=== PATIENT | male | born 1930 | race Caucasian/White ===

== ENCOUNTER 2018-12-01 05:45 | Emergency (ER) | payer MEDICARE ==
[~2018-12-01] VITALS: Ht 162.6 cm; Wt 56.8 kg
[2018-12-01] MEDS ORDERED: METO1TAB32 PO (06:11)
[2018-12-01] MEDS ORDERED: TORS100T PO (06:11)
[2018-12-01 06:41] LABS: BASO % 0.2 % (0.0-1.0); EOS % 0.7 % (0.0-3.0); HEMATOCRIT 35.1 % (42.0-52.0); HEMOGLOBIN 10.2 g/dl (13.5-17.5); LYMPH # 1.2 10^3/uL (1.5-4.5); LYMPH % 19.9 % (24.0-44.0); MEAN CORPUSCULAR HEMOGLOBIN 28.9 pg (27.0-33.0); MEAN CORPUSCULAR HGB CONC 29.1 g/dl (32.0-36.5); MEAN CORPUSCULAR VOLUME 99.4 fl (80.0-96.0); MONO # 0.5 10^3/uL (0.0-0.8); MONO % 8.1 % (0.0-5.0); NEUTROPHILS # 4.1 10^3/uL (1.8-7.7); NEUTROPHILS % 70.6 % (36.0-66.0); PLATELET COUNT, AUTOMATED 173 10^3/uL (150-450); RED BLOOD COUNT 3.53 10^6/uL (4.30-6.10); WHITE BLOOD COUNT 5.8 10^3/uL (4.0-10.0)
[2018-12-01] MEDS ORDERED: ISOVUE-370 76% 100ML VIAL (Q9967) As Ordered ONE (06:52)
--- NOTE | 2018-12-01 07:37 | REPVR ---
EXAM: CT Angiography Chest With Contrast EXAM DATE/TIME: 12/01/2018 6:45 AM CLINICAL HISTORY: 88 years old, male; Chest pain; Type not specified; Additional info: Chest and back pain, HX of thoracic and abdominal aa TECHNIQUE: Imaging protocol: Computed tomographic angiography images of the chest with intravenous contrast using CT angiography protocol. 3D rendering: MIP reconstructed images were created and reviewed. Radiation optimization: All CT scans at this facility use at least one of these dose optimization techniques: automated exposure control; mA and/or kV adjustment per patient size (includes targeted exams where dose is matched to clinical indication); or iterative reconstruction. Contrast material: ISO; Contrast volume: 100 ml; Contrast route: AC; COMPARISON: No relevant prior studies available. FINDINGS: Pulmonary arteries: See Heart Finding. Great vessels off aortic arch: The patient is status post reimplantation of the right brachiocephalic trunk and left common carotid artery into the ascending aorta and appears to be widely patent. There is reimplantation of the left subclavian artery originating from the left common carotid artery with stent graft seen in the proximal left subclavian artery. Aorta: The aortic root is dilated measuring 4.6 cm. The patient is status post aortic repair with endovascular stent grafts seen extending from the distal thoracic aorta through the aortic arch into the distal thoracic aorta just proximal to the aortic hiatus. 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 There is filling of the isolated distal half of the thoracic aneurysm with contrast via the abdominal aortic dissection seen on the CT angiogram of the abdomen and pelvis. Other arteries: There is apparent retrograde filling of the isolated aneurysmal sac and the distal thoracic aorta a lumbar artery (axial images [id number]). Lungs: See Pleural Space Finding. Pleural space: There is large right-sided pleural effusion and moderate left-sided pleural effusion with some loculated components on the left. There are overlying compressive atelectatic changes. Heart: There is massive cardiomegaly. Dual-lead pacer/ICD leads seen. The pulmonary trunk is dilated measuring 3.7 cm. Lymph nodes: There is diffuse mediastinal edema with shotty lymph nodes. Bones/joints: Bulky anterior thoracic spine osteophytes seen. Soft tissues: Unremarkable. IMPRESSION: 1. 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 Thrombosed aneurysmal sac measures up to 8.2 cm at the arch and 6.6 cm in the descending thoracic aorta. Incomplete thrombosis of the isolated aneurysmal sac seen from the mid descending thoracic aorta likely with retrograde filling of the distal thoracic aortic aneurysm outside the confines of the endograft from the aortic dissection seen from the aortic hiatus extending inferiorly. Progressive enlargement of the isolated aneurysmal sac cannot be discerned and comparison to prior CT angiogram of the chest is needed. type III endoleak through defect in the graft can't be discerned. 2. 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 3. Reimplantation of right brachiocephalic trunk and left common carotid artery to the proximal ascending aorta in addition to reimplantation of the left subclavian artery into the left common carotid artery with proximal left subclavian stent seen. These arteries are widely patent. 4. Large right-sided pleural effusion. 5. Moderate left-sided pleural effusion with some loculated component. 6. Massive cardiomegaly. 7. Nonspecific diffuse mediastinal edema with shotty lymph nodes. These could be postsurgical in nature however follow up is suggested. Electronically signed by: Mina Gordon On 12/01/2018 07:37:40 AM
--- NOTE | 2018-12-01 07:52 | REPVR ---
EXAM: CT Angiography Abdomen and Pelvis With Contrast EXAM DATE/TIME: 12/01/2018 6:45 AM CLINICAL HISTORY: 88 years old, male; Abdominal pain; Generalized; Additional info: Chest and back pain, HX of thoracic and abdominal aa TECHNIQUE: Imaging protocol: Computed tomographic angiography images of the abdomen and pelvis with intravenous contrast material. 3D rendering: MIP reconstructed images were created and reviewed. Radiation optimization: All CT scans at this facility use at least one of these dose optimization techniques: automated exposure control; mA and/or kV adjustment per patient size (includes targeted exams where dose is matched to clinical indication); or iterative reconstruction. Contrast material: ISO; Contrast volume: 100 ml; Contrast route: AC; COMPARISON: No relevant prior studies available. FINDINGS: VASCULATURE: Aorta: There is abdominal aortic aneurysm measuring 4.0 cm. There is a dissection extending from the distal thoracic aorta at the aortic hiatus into the mid abdominal aorta. There is isoenhancement of the true and false lumen. There is retrograde enhancement of the thrombosed and isolated distal thoracic aortic aneurysm. Celiac trunk and mesenteric arteries: The celiac trunk is widely patent. The SMA is widely patent. The JEOVANNY is widely patent. Renal arteries: The left renal artery is widely patent. There is coarse calcification at the origin of the right renal artery resulting in near 50% stenosis. Right iliac arteries: The right common iliac, external iliac, and internal iliac arteries are tortuous but patent. Left iliac arteries: The left common iliac, external and internal iliac arteries are tortuous but patent. ABDOMEN: Liver: There are scattered small hepatic cysts. Gallbladder and bile ducts: There is a 7 mm gallstone. Pancreas: Unremarkable. No mass. No ductal dilation. Spleen: Unremarkable. No splenomegaly. Adrenals: Unremarkable. No mass. Kidneys and ureters: There are bilateral renal cysts the largest on the left measures 2.8 cm and the largest on the right measures 1.7 cm. Stomach and bowel: There is descending and sigmoid colon sclerosis. There is right colonic diverticulosis. Appendix: No evidence of appendicitis. PELVIS: Bladder: Unremarkable. No mass. Reproductive: The prostate gland is enlarged measuring 5.7 x 4.9 cm indenting the posterior wall of the urinary bladder. ABDOMEN and PELVIS: Intraperitoneal space: There is extensive diffuse mesenteric edema. Bones/joints: There is diffuse bony osteopenia. There is extensive diffuse lumbar spine DJD. Soft tissues: There is extensive diffuse subcutaneous edema. Lymph nodes: Unremarkable. No enlarged lymph nodes. IMPRESSION: 1. Abdominal aortic aneurysm measuring up to 4.0 cm with dissection flap extending from the aortic hiatus into the mid abdominal aorta with isoenhancement of the true and false lumen and good opacification of the SMA, celiac trunk, JEOVANNY and renal arteries as well as the iliac arteries. This is likely status post surgical fenestration of the distal dissection flap. 2. Apparent retrograde filling of the isolated distal thoracic aortic aneurysm outside the confines of the aortic endograft in addition to type II endoleak from lumbar artery in the mid thoracic aorta. 3. Comparison to an old study to assess for change in aortic size is recommended. 4. Extensive diffuse mesenteric and subcutaneous edema with ascites suggestive of third spacing. 5. Enlarged prostate gland. Medical history, physical exam and PSA level. 6. Hepatic and renal cysts. 7. Colonic diverticulosis. 8. Extensive lumbar spine DJD. Electronically signed by: Mina Gordon On 12/01/2018 07:52:20 AM
[2018-12-01 08:05] LABS: ALBUMIN 2.3 GM/DL (3.2-5.2); BILIRUBIN,DIRECT 0.8 MG/DL (0.0-0.2); BILIRUBIN,TOTAL 1.5 MG/DL (0.2-1.0); CK-MB VALUE MASS 3.1 NG/ML (<3.6); MB/CK RELATIVE INDEX 4.13 (< OR =4); TOTAL PROTEIN 6.5 GM/DL (6.4-8.2); TROPONIN I 0.07 NG/ML (< 0.10)
[2018-12-01 08:09] LABS: MAGNESIUM LEVEL 2.3 MG/DL (1.8-2.4)
--- NOTE | 2018-12-01 08:11 | ECGEPIP ---
[facility] - ED Test Date: 2018-12-01 Pat Name: MARINA VASQUEZ Department: Room: - Gender: Male [employer]ist: CHICO : [id number] Requested By: ALAN Bullard Order Number: [id number] Reading MD: Sincere Palumbo Measurements Intervals [place] Rate: 67 P: -25 [place]: 196 QRS: -64 QRSD: 139 T: 109 QT: 442 QTc: 468 Interpretive Statements SINUS RHYTHM WITH OCCASIONAL SUPRAVENTRICULAR PREMATURE COMPLEXES POSSIBLE LEFT ATRIAL ENLARGEMENT INTRAVENTRICULAR CONDUCTION DELAY ANTEROSEPTAL MYOCARDIAL INFARCTION, POSSIBLY ACUTE ACUTE NH NO PRIORS FOR COMPARISON Electronically Signed on 12-01-2018 8:10:50 EDT by Sincere Palumbo
[2018-12-01] MEDS ORDERED: fentaNYL 100 MCG/2 ML INJECTION (J3010) IV PRN (08:15)
[2018-12-01] MEDS ORDERED: ONDANSETRON 4MG/2ML VIAL (J2405) IV ONE (08:15)
[2018-12-01] MEDS ORDERED: ZOFR4TAB16 PO (08:59)
[2018-12-01] MEDS ORDERED: NORC1TAB7 PO (08:59)
[2018-12-01 09:00] VITALS: BP 112/63
[2018-12-01] MEDS ORDERED: ATIV1TAB10 PO (09:00)
== END 2018-12-01 08:35 | disposition left against medical advice (07) ==
LOC: M ED 05:45
DX: I71.01 Dissection of thoracic aorta (principal); I71.02 Dissection of abdominal aorta; I71.3 Abdominal aortic aneurysm, ruptured; I71.1 Thoracic aortic aneurysm, ruptured; M54.9 Dorsalgia, unspecified; R06.02 Shortness of breath; I49.3 Ventricular premature depolarization; I11.0 Hypertensive heart disease with heart failure; I50.9 Heart failure, unspecified; Z88.5 Allergy status to narcotic agent; Z88.6 Allergy status to analgesic agent; Z79.899 Other long term (current) drug therapy
CPT/HCPCS: 71275; 74177; 80047; 80076; 82550; 82553; 83605; 83690; 83735; 83880; 84484; 85025; 87040; 93005; 93041; 96374; 96375; 99284; J2405; J3010; Q9967